=== PATIENT | female | born 1990 | race American Indian/Alaskan Native ===

== ENCOUNTER 2017-09-07 23:18 | Emergency (ER) | payer SELFPAY ==
[2017-09-08] MEDS ORDERED: TYLENOL PO ONE (03:31)
[2017-09-08 03:36] VITALS: BP 111/73
--- NOTE | 2017-09-08 04:39 | Emergency Department Report ---
Minor Respiratory - HPI Chief Complaint: Upper Respiratory Infection Stated Complaint: SINUS INFECTION Time Seen by Provider: 09/08/17 04:04 Duration: over a week Pain Location: Other (sinus pain and pressure 7/10, achy N and sore) Severity: severe Minor Respiratory: Yes Rhinorrhea (nasal congestion and facial pain), Yes Sore Throat (with cough and), Yes Able to Tolerate Fluids, Yes Cough (dry cough), No Ear Pain, No Sick Contacts, No Hemoptysis, No Chest Pain, No Shortness of Breath , No Fever Other History: Patient reports that she's been having in sinus pressure, pain and congestion and swollen glands to neck for over a week. She says she's been trying Zyrtec for the last 5 days and is helping a little. She states that she' s been taking [id number] cough and cold and pain medication but is not helping much. Denies any chest pain or shortness of breath. Denies any headache. Denies any fever or chills. She reports some coughing and some sore throats. Nothing makes pain better and nothing makes it worse. ED Review of Systems ROS: Stated complaint: SINUS INFECTION Other details as noted in HPI Comment: All other systems reviewed and negative Constitutional: no symptoms reported Eyes: denies: eye pain, eye discharge ENT: throat pain, congestion. denies: ear pain, dental pain, epistaxis Respiratory: cough. denies: orthopnea, shortness of breath, SOB with exertion, SOB at rest, stridor, wheezing Cardiovascular: denies: chest pain, palpitations, dyspnea on exertion, edema, syncope, paroxysmal nocturnal dyspnea Gastrointestinal: denies: nausea, vomiting Skin: denies: rash Neurological: denies: headache, abnormal gait, vertigo ED Past Medical Hx - Past Medical History Previous Medical History?: Yes Additional medical history: heart murmur - Surgical History Past Surgical History?: Yes Additional Surgical History: x2. left knee - Family History Family history: hypertension - Social History Smoking Status: Never Smoker Substance Use Type: Alcohol - Medications Home Medications: Home Medications Medication Instructions Recorded Confirmed Last Taken Type Amoxicillin/K Clav Tab [Augmentin 1 tab PO Q12HR 10 Days #20 tab 09/08/17 Unknown Rx 875 mg] Cetirizine HCl [ZyrTEC] 10 mg PO QAM 14 Days #14 capsule 09/08/17 Unknown Rx Fluticasone [Flonase] 1 spray NS QDAY 14 Days #1 bottle 09/08/17 Unknown Rx Ibuprofen [Motrin] 600 mg PO Q8H PRN #12 tablet 09/08/17 Unknown Rx predniSONE [Deltasone] 20 mg PO QAM 3 Days #3 tab 09/08/17 Unknown Rx Minor Respiratory Exam - Exam General: Vital signs noted. No distress. Alert and acting appropriately. This is a 26-year-old female well-nourished well-developed in no acute distress. HEENT: Yes Moist Mucous Membranes, Yes Rhinorrhea (positive nasal congestion with erythema.), Yes Frontal Tenderness, Yes Maxillary Tenderness, No Pharyngeal Erythema, No Pharyngeal Exudates (uvula midline and oral airways patent), No Conjuctival Injection Ear: Neither TM Bulge (bilateral TM congested), Neither TM Erythema, Neither EAC Pain, Neither EAC Discharge Neck: Yes Supple (full range of motion, no C-spine tenderness), No Adenopathy Lungs: Yes Good Air Exchange (CTAB), Yes Cough (dry cough), No Wheezes, No Ronchi, No Stridor, No Labored Respirations, No Retractions, No Use of Accessory Muscles, No Other Abnormal Lung Sounds Heart: Yes Regular (S1, S2), No Murmur Abdomen: Yes Normal Bowel Sounds (normal bowel sounds in all quadrants), No Tenderness (nontender to palpated in all quadrants), No Peritoneal Signs Skin: No Rash, No Edema Neurologic: Alert and oriented 3, speech is clear and fluid. GCS is 15 and normal gait. Musculoskeletal: Unremarkable. Extremity: No clubbing, cyanosis or edema. +2 pulses all extremities and no neurovascular compromise ED Course Vital Signs 09/07/17 09/08/17 09/08/17 23:17 03:34 03:35 Temperature 98.6 F Pulse Rate 69 52 L Respiratory 16 18 16 Rate Blood Pressure 121/78 111/73 O2 Sat by Pulse 100 Oximetry - Reevaluation(s) Reevaluation #1: 09/08/17 06:18 Patient stable throughout ED course ED Medical Decision Making - Medical Decision Making ED course: Patient care with complaint of sinus problems and found to have a sinus infection, cough. I discussed the patient diagnosis and treatment plan and she voiced understanding. Patient discharged home in stable condition with prescription for Zyrtec, Flonase to take for 14 days once daily, Augmentin, Motrin and prednisone. I discussed with her that she needs to follow-up with her primary care physician that she does not have one she is to follow-up with [facility]. Critical care attestation.: If time is entered above; I have spent that time in minutes in the direct care of this critically ill patient, excluding procedure time. ED Disposition Clinical Impression: Cough in adult Sinusitis, acute Qualifiers: Sinusitis location: unspecified location Recurrence: recurrent Qualified Code(s ): J01.91 - Acute recurrent sinusitis, unspecified Disposition: TO HOME OR SELFCARE Is pt being admited?: No Does the pt Need Aspirin: No Condition: Stable Instructions: Sinusitis (ED), Acute Cough (ED) Additional Instructions: Please increase her fluid intake Flush nostrils with saline nasal spray take antibiotic as prescribed F/U with primary care physician as instructed Prescriptions: Amoxicillin/K Clav Tab [Augmentin 875 mg] 1 tab PO Q12HR 10 Days #20 tab Cetirizine HCl [ZyrTEC] 10 mg PO QAM 14 Days #14 capsule Fluticasone [Flonase] 1 spray NS QDAY 14 Days #1 bottle Ibuprofen [Motrin] 600 mg PO Q8H PRN #12 tablet PRN Reason: Pain predniSONE [Deltasone] 20 mg PO QAM 3 Days #3 tab Referrals: SURYA QUIÑONES [Other] - 2-[address] [facility] [Outside] - 2-3 Days Forms: Work/School Release Form(ED)
== END 2017-09-08 06:25 | disposition home or self-care (01) ==
LOC: ED 23:18
DX: J01.90 Acute sinusitis, unspecified (principal)
CPT/HCPCS: 99282